=== PATIENT | female | born 1955 | race Caucasian/White ===

== ENCOUNTER 2017-05-06 15:55 | Emergency (ER) | payer OTHER, BC ==
[2017-05-06] MEDS ORDERED: OXYCODONE-ACETAMINOPHEN 5-325 MG TABLET PO ONE (16:13)
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
[2017-05-06] MEDS ORDERED: ONDANSETRON 4 MG TAB.RAPDIS SL ONE (16:14)
[2017-05-06] MEDS ORDERED: DIPH/PERTUSS(ACELL)/TETANUS VAC/PF 0.5 ML SYR (>=10YO) IM ONE (16:23)
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
--- NOTE | 2017-05-06 17:18 | RADIOLOGY REPORT (SQ) ---
EXAM DESCRIPTION: CT LTD RENAL STONE PROTOCOL ON COMPLETED DATE/TIME: 05/06/2017 4:46 pm REASON FOR STUDY: flank pain COMPARISON: None. TECHNIQUE: CT scan of the abdomen and pelvis performed without intravenous or oral contrast. Images reviewed with lung, soft tissue, and bone windows. Reconstructed coronal and sagittal MPR images revi ewed. All images stored on PACS. All CT scanners at this facility use dose modulation, iterative reconstruction, and/or weight based d osing when appropriate to reduce radiation dose to as low as reasonably achievable (ALARA). [facility]: Dose Right [facility]: CareDose [facility]: Dose Right [facility]: Teradose 4D [facility]: Smart Patience RADIATION DOSE: 7.70mGy. LIMITATIONS: None. FINDINGS: LOWER CHEST: 5 mm nodule in the anterior- lateral segment of the right lower lobe. No inf iltrates. NON-CONTRASTED LIVER, SPLEEN, ADRENALS: Evaluation limited by lack of IV contrast. No identified sign ificant masses. PANCREAS: No masses. No peripancreatic inflammatory changes. GALLBLADDER: No identified stones by CT criteria. No inflammatory changes to suggest cholecystitis. RIGHT KIDNEY AND URETER: 16 mm right renal upper pole exophytic well-defined hypodense lesion, likely complex cyst. Assessment limited by lack of IV contrast. No significant calcifications. No hydro nephrosis or hydroureter. LEFT KIDNEY AND URETER: No suspicious masses. Assessment limited by lack of IV contrast. No signifi cant calcifications. No hydronephrosis or hydroureter. AORTA AND RETROPERITONEUM: No aneurysm. No retroperitoneal masses or adenopathy. BOWEL AND PERITONEAL CAVITY: Mild sigmoid diverticulosis. No obvious masses or inflammatory changes. No free fluid. APPENDIX: Normal. PELVIS, BLADDER, AND ABDOMINAL WALL:Mild subcutaneous edema present in the anterior upper and lower a bdominal wall, nonspecific. No abnormal masses. No free fluid. Bladder normal. BONES: No significant findings. OTHER: No other significant finding. IMPRESSION: Mild subcutaneous edema present in the anterior upper and lower abdominal wall, nonspeci fic. 16 mm right renal upper pole exophytic well-defined hypodense lesion, likely complex cyst. Ass essment limited by lack of IV contrast. No urinary calcifications. No hydronephrosis or hydrouret er.5 mm nodule in the anterior- lateral segment of the right lower lobe. TECHNICAL DOCUMENTATION: JOB ID: [id number] Quality ID # [id number]: Final reports with documentation of one or more dose reduction techniques (e.g., Au tomated exposure control, adjustment of the mA and/or kV according to patient size, use of iterative reconstruction technique) 2010 [employer]- All Rights Reserved
[2017-05-06 17:54] VITALS: BP 126/84
== END 2017-05-06 17:46 | disposition home or self-care (01) ==
LOC: ER 15:55
DX: S30.1XXA Contusion of abdominal wall, initial encounter (principal); S50.812A Abrasion of left forearm, initial encounter; R07.9 Chest pain, unspecified; M79.632 Pain in left forearm; R10.10 Upper abdominal pain, unspecified; V43.52XA Car driver injured in collision with other type car in traffic accident, initial encounter
CPT/HCPCS: 99284; 71020; 76380; 90715; S0119